=== PATIENT | male | born 1965 ===

== ENCOUNTER → 2016-08-15 | Outpatient (CLI) | payer OTHER ==
--- NOTE | 2016-08-15 17:39 | XR ---
EXAMINATION TYPE: XR lumbar spine 2 or 3V DATE OF EXAM: 08/15/2016 5:32 PM CLINICAL HISTORY: pain TECHNIQUE: Three views of the lumbar spine are submitted. COMPARISON: None. FINDINGS: There are 5 lumbar type vertebral bodies identified. Grade 1 anterolisthesis L4 and L5 measuring 8.8 mm. Severe space narrowing L5-S1. Facet joint arthropathy. The lumbar spine shows satisfactory alignm ent without evidence of acute fracture or dislocation. Vertebral body heights are within normal limit s. The overlying soft tissue appears unremarkable. IMPRESSION: No acute fracture is seen in the lumbar spine. Charted changes as noted. ICD 10 NO FRACTURE, INITIAL EVALUATION
== END ==
LOC: RADXRMAIN 17:18
PROVIDERS: ATTEND Emergency Medicine
DX: S39.012A Strain of muscle, fascia and tendon of lower back, initial encounter (principal)
CPT/HCPCS: 72100

== ENCOUNTER → 2016-08-20 | Outpatient (CLI) | payer OTHER ==
--- NOTE | 2016-08-20 15:14 | XR ---
EXAMINATION TYPE: XR thoracic spine complete DATE OF EXAM: 08/20/2016 1:51 PM COMPARISON: NONE HISTORY: Strain of muscle TECHNIQUE: 2 views thoracic spine supplemented with a transthoracic swimmer's view FINDINGS: There are 12 thoracic type she will bodies. The pedicles are intact. Disc heights are prese rved. Vertebral body heights are preserved. Alignment is normal. IMPRESSION: 1. Normal thoracic spine
== END | disposition home or self-care (01) ==
LOC: RADXRMAIN 13:17
PROVIDERS: ATTEND Emergency Medicine
DX: S39.012A Strain of muscle, fascia and tendon of lower back, initial encounter (principal)
CPT/HCPCS: 72072

== ENCOUNTER 2018-10-08 05:06 | Emergency (ER) | payer OTHER ==
[2018-10-08] MEDS ORDERED: SODIUM CHLORIDE 0.9% 500 ML 500 ML IV ONE (05:32)
--- NOTE | 2018-10-08 05:34 | ED ---
General Adult HPI - General Source: patient, RN notes reviewed, old records reviewed Mode of arrival: wheelchair Limitations: no limitations <Romel Tidwell - Last Filed: 10/08/18 07:00> <Sung Collazo - Last Filed: 10/08/18 07:55> - General Chief complaint: Skin/Abscess/Foreign Body Stated complaint: Infection in leg Time Seen by Provider: 10/08/18 05:11 - History of Present Illness Initial comments: 53-year-old male with history of hypertension, diabetes presenting for evaluation of pain and swelling in the right medial thigh. Patient's symptoms have been present for approximately one week. He does report some subjective fever chills earlier in the week. He had some lightheadedness. Denies dyspnea, denies chest pain. No history of DVT or PE. He has previous history of cellulitis. Denies scrotal pain or swelling. Denies erythema to the scrotum. He hasn't, pain nausea vomiting. (Romel Tidwell) - Related Data Home Medications Medication Instructions Recorded Confirmed Furosemide [Lasix] 80 mg PO DAILY 02/26/15 10/08/18 Omeprazole [PriLOSEC] 20 mg PO AC-BRKFST 02/26/15 10/08/18 Potassium Chloride ER [K-Dur 10] 10 meq PO DAILY 02/26/15 10/08/18 Ramipril 10 mg PO BID 02/26/15 10/08/18 metFORMIN HCL [Glucophage] 500 mg PO BID 02/26/15 10/08/18 Dulaglutide [Trulicity] 1.5 mg SQ FR 10/08/18 10/08/18 Rosuvastatin Calcium 5 mg PO MOWEFR 10/08/18 10/08/18 Previous Rx's Medication Instructions Recorded Sulfamethox-Tmp 800-160Mg [Bactrim 2 each PO Q12HR #40 tab 10/08/18 DS 800-160 mg] Allergies Allergy/AdvReac Type Severity Reaction Status Date / Time ramipril [From Altace] Allergy Swelling Verified 10/08/18 07:49 amlodipine [From Norvasc] AdvReac Nausea Verified 10/08/18 07:49 Review of Systems ROS Other: All systems not noted in ROS Statement are negative. <Romel Tidwell - Last Filed: 10/08/18 07:00> ROS Other: All systems not noted in ROS Statement are negative. <Sung Collazo - Last Filed: 10/08/18 07:55> ROS Statement: Those systems with pertinent positive or pertinent negative responses have been documented in the HPI. Past Medical History Past Medical History: Diabetes Mellitus, Hyperlipidemia, Hypertension History of Any Multi-Drug Resistant Organisms: None Reported Past Surgical History: No Surgical Hx Reported Past Psychological History: No Psychological Hx Reported Smoking Status: Never smoker Past Alcohol Use History: None Reported Past Drug Use History: None Reported <Romel Tidwell - Last Filed: 10/08/18 07:00> General Exam Limitations: no limitations General appearance: alert, in no apparent distress Head exam: Present: atraumatic, normocephalic Eye exam: Present: normal appearance, PERRL ENT exam: Present: normal exam Neck exam: Present: normal inspection. Absent: tenderness, meningismus Respiratory exam: Present: normal lung sounds bilaterally. Absent: respiratory distress, wheezes Cardiovascular Exam: Present: regular rate, normal rhythm GI/Abdominal exam: Present: soft. Absent: distended, tenderness Extremities exam: Present: tenderness (Tenderness and swelling medial right thigh, there is some associated erythema. No fluctuance, no induration), other Neurological exam: Present: alert, oriented X3, CN II-XII intact. Absent: motor sensory deficit Psychiatric exam: Present: normal affect, normal mood Skin exam: Present: warm, dry, erythema (Right medial thigh) <Romel Tidwell - Last Filed: 10/08/18 07:00> Course <Romel Tidwell - Last Filed: 10/08/18 07:00> Vital Signs 10/08/18 05:12 Temperature 98.2 F Pulse Rate 78 Respiratory 20 Rate Blood Pressure 133/82 O2 Sat by Pulse 97 Oximetry - Reevaluation(s) Reevaluation #1: 10/08/18 07:00 Patient's care is signed out at shift change to Dr. Collazo awaiting ultrasound of the right lower extremity. (Romel Tidwell) Medical Decision Making - Lab Data Result diagrams: 10/08/18 05:30 10/08/18 05:30 <Romel Tidwell - Last Filed: 10/08/18 07:00> - Lab Data Result diagrams: 10/08/18 05:30 10/08/18 05:30 - Radiology Data Radiology results: report reviewed (Ultrasound negative for DVT) <Sung Collazo - Last Filed: 10/08/18 07:55> - Medical Decision Making Case endorsed to me with probable cellulitis and discharge of ultrasound negative. Patient reevaluated. Patient and family updated. Patient does have area of erythema right medial thigh just above the knee to the mid thigh. This is warm and mildly tender. Consistent with diagnosis of cellulitis. (Sung Collazo) - Lab Data Lab Results 10/08/18 10/08/18 Range/Units 05:30 05:30 WBC 11.3 H (3.8-10.6) k/uL RBC 5.56 (4.30-5.90) m/uL Hgb 12.3 L (13.0-17.5) gm/dL Hct 38.8 L (39.0-53.0) % MCV 69.9 L (80.0-100.0) fL MCH 22.2 L (25.0-35.0) pg MCHC 31.7 (31.0-37.0) g/dL RDW 14.6 (11.5-15.5) % Plt Count 175 (150-450) k/uL Neutrophils % 63 % Lymphocytes % 26 % Monocytes % 6 % Eosinophils % 3 % Basophils % 0 % Neutrophils # 7.1 (1.3-7.7) k/uL Lymphocytes # 2.9 (1.0-4.8) k/uL Monocytes # 0.6 (0-1.0) k/uL Eosinophils # 0.4 (0-0.7) k/uL Basophils # 0.1 (0-0.2) k/uL Hypochromasia Slight Microcytosis Moderate Sodium 138 (137-145) mmol/L Potassium 4.1 (3.5-5.1) mmol/L Chloride 102 (98-107) mmol/L Carbon Dioxide 22 (22-30) mmol/L Anion Gap 14 mmol/L BUN 14 (9-20) mg/dL Creatinine 0.72 (0.66-1.25) mg/dL Est GFR (CKD-EPI)AfAm >90 (>60 ml/min/1.73 sqM) Est GFR (CKD-EPI)NonAf >90 (>60 ml/min/1.73 sqM) Glucose 197 H (74-99) mg/dL Calcium 9.5 (8.4-10.2) mg/dL Total Bilirubin 1.1 (0.2-1.3) mg/dL AST 26 (17-59) U/L ALT 29 (21-72) U/L Alkaline Phosphatase 61 (38-126) U/L Total Protein 7.2 (6.3-8.2) g/dL Albumin 4.2 (3.5-5.0) g/dL Disposition <Romel Tidwell - Last Filed: 10/08/18 07:00> Is patient prescribed a controlled substance at d/c from ED?: No Time of Disposition: 07:55 <Sung Collazo - Last Filed: 10/08/18 07:55> Clinical Impression: Cellulitis of right thigh Disposition: HOME SELF-CARE Condition: Stable Instructions (If sedation given, give patient instructions): Cellulitis (ED) Additional Instructions: Please follow-up with primary care physician in the next couple days for recheck. Return for fevers, increased redness, pain, worsening symptoms or any other concerns. Prescriptions: Sulfamethox-Tmp 800-160Mg [Bactrim DS 800-160 mg] 2 each PO Q12HR #40 tab Referrals: Reuben Garvey DO [Primary Care Provider] - 1-2 days
[2018-10-08 06:01] LABS: Basophils # (A) 0.1 k/uL (0-0.2); Basophils % (A) 0 %; Eosinophils # (A) 0.4 k/uL (0-0.7); Eosinophils % (A) 3 %; HCT 38.8 % (39.0-53.0); HGB 12.3 gm/dL (13.0-17.5); Hypochromasia Slight; Lymphocytes # (A) 2.9 k/uL (1.0-4.8); Lymphocytes % (A) 26 %; MCH 22.2 pg (25.0-35.0); MCHC 31.7 g/dL (31.0-37.0); MCV 69.9 fL (80.0-100.0); Mean Platelet Volume 9.3; Microcytosis Moderate; Monocytes # (A) 0.6 k/uL (0-1.0); Monocytes % (A) 6 %; Neutrophils # (A) 7.1 k/uL (1.3-7.7); Neutrophils % (A) 63 %; Platelet Count 175 k/uL (150-450); RBC 5.56 m/uL (4.30-5.90); RDW 14.6 % (11.5-15.5); WBC 11.3 k/uL (3.8-10.6)
[2018-10-08 06:08] LABS: ALT 29 U/L (21-72); AST 26 U/L (17-59); Albumin 4.2 g/dL (3.5-5.0); Alkaline Phosphatase 61 U/L (38-126); Anion Gap 14 mmol/L; Blood Urea Nitrogen 14 mg/dL (9-20); Calcium 9.5 mg/dL (8.4-10.2); Carbon Dioxide 22 mmol/L (22-30); Chloride 102 mmol/L (98-107); Glucose 197 mg/dL (74-99); Potassium 4.1 mmol/L (3.5-5.1); Sodium 138 mmol/L (137-145); Total Bilirubin 1.1 mg/dL (0.2-1.3); Total Protein 7.2 g/dL (6.3-8.2)
--- NOTE | 2018-10-08 07:43 | US ---
EXAMINATION TYPE: US venous doppler duplex LE RT DATE OF EXAM: 10/08/2018 7:24 AM COMPARISON: None CLINICAL HISTORY: 53-year-old male Pain. Upper leg redness. SIDE PERFORMED: Right TECHNIQUE: The lower extremity deep venous system is examined utilizing real time linear array sonog tran with graded compression, doppler sonography and color-flow sonography. FINDINGS: VESSELS IMAGED: External Iliac Vein (EIV) Common Femoral Vein Deep Femoral Vein Greater Saphenous Vein * Femoral Vein Popliteal Vein Small Saphenous Vein * Proximal Calf Veins (* superficial vessels) Gasket Inspector notes: Technically difficult study due to patient body habitus. Patient unable to tolerat e compression imaging mid and distal femoral vein. Therefore, additional color imaging was performed. Right Leg: Negative for DVT IMPRESSION: Some technical limitations of this study. No evidence for DVT within the right lower extremity imaged from the groin to the upper calf.
[2018-10-08] MEDS ORDERED: SULFAMETHOX-TMP 800-160MG 1 EACH TAB PO STA (07:52)
[2018-10-08 08:21] VITALS: BP 144/88; PULSE 70; RESP 16; TEMP 98.6
== END 2018-10-08 08:21 | disposition home or self-care (01) ==
LOC: EC 05:06
DX: L03.115 Cellulitis of right lower limb (principal); E11.9 Type 2 diabetes mellitus without complications; E78.5 Hyperlipidemia, unspecified; I10 Essential (primary) hypertension; Z79.84 Long term (current) use of oral hypoglycemic drugs; Z79.899 Other long term (current) drug therapy; Z88.8 Allergy status to other drugs, medicaments and biological substances
CPT/HCPCS: 36415; 80053; 85025; 99284

== ENCOUNTER 2023-07-04 16:11 | Inpatient (IN) | payer BC ==
[2023-07-04 17:07] LABS: Basophils # (A) 0.1 k/uL (0-0.2); Basophils % (A) 1 %; Eosinophils # (A) 0.4 k/uL (0-0.7); Eosinophils % (A) 4 %; HCT 43.1 % (39.0-53.0); HGB 13.5 gm/dL (13.0-17.5); Hypochromasia Slight; Lymphocytes # (A) 2.9 k/uL (1.0-4.8); Lymphocytes % (A) 30 %; MCH 22.1 pg (25.0-35.0); MCHC 31.3 g/dL (31.0-37.0); MCV 70.7 fL (80.0-100.0); Mean Platelet Volume 9.4; Microcytosis Moderate; Monocytes # (A) 0.5 k/uL (0-1.0); Monocytes % (A) 5 %; Neutrophils # (A) 5.5 k/uL (1.3-7.7); Neutrophils % (A) 57 %; Platelet Count 137 k/uL (150-450); RDW 15.8 % (11.5-15.5); WBC 9.6 k/uL (3.8-10.6)
[2023-07-04] MEDS ORDERED: DILTIAZEM DRIP BOLUS FROM BAG 1 MG SOLN IV ONE (17:07)
[2023-07-04 17:23] LABS: Partial Thromboplastin Time 23.6 sec (22.0-30.0); Prothrombin Time 11.3 sec (10.0-12.5)
[2023-07-04 17:24] LABS: ALT 33 U/L (4-49); AST 35 U/L (17-59); African American GFR (CKD) >90 (>60 ml/min/1.73 sqM); Albumin 4.7 g/dL (3.5-5.0); Alkaline Phosphatase 84 U/L (38-126); Anion Gap 9 mmol/L; Blood Urea Nitrogen 15 mg/dL (9-20); Calcium 9.7 mg/dL (8.4-10.2); Carbon Dioxide 23 mmol/L (22-30); Chloride 105 mmol/L (98-107); Glucose 196 mg/dL (74-99); Magnesium 1.5 mg/dL (1.6-2.3); Non-African American GFR(CKD) >90 (>60 ml/min/1.73 sqM); Potassium 4.1 mmol/L (3.5-5.1); Sodium 137 mmol/L (137-145); Total Bilirubin 1.3 mg/dL (0.2-1.3); Total Protein 7.8 g/dL (6.3-8.2)
--- NOTE | 2023-07-04 17:29 | XR ---
EXAMINATION TYPE: XR chest 2V DATE OF EXAM: 07/04/2023 COMPARISON: NONE HISTORY: Shortness of breath TECHNIQUE: Frontal and lateral views of the chest are obtained. FINDINGS: Scattered senescent parenchymal changes noted. Hyperinflation compatible with COPD. No evidence for infiltrate. No evidence for atelectasis. Heart size is stable. Mediastinal structures are stable and grossly unremarkable. No evidence for hilar prominence. Degenerative changes dorsal spine. IMPRESSION: 1. No evidence for acute pulmonary disease.
[2023-07-04 17:32] LABS: NT-Pro-B-Type Natriuretic Pept 527 pg/mL
[2023-07-04] MEDS ORDERED: DILTIAZEM 125 MG in SODIUM CHLORIDE 0.9% 100 ML IV SCH (18:00)
--- NOTE | 2023-07-04 18:19 | ED ---
Chest Pain HPI - General Chief Complaint: Chest Pain Stated Complaint: Chest pain Time Seen by Provider: 07/04/23 16:20 Source: patient Mode of arrival: ambulatory Limitations: no limitations - History of Present Illness Initial Comments: 58-year-old male presents emergency room reporting chest pain. States the pain came on suddenly approximately 2 hours ago. He can feel his heart racing. He feels short of breath. He has no previous cardiac history. Patient arrives and is in A. fib. No history of similar. He denies any recent illnesses. No c ontraindications to anticoagulation. No other alleviating, precipitating or modifying factors - Related Data Home Medications Medication Instructions Recorded Confirmed Omeprazole [PriLOSEC] 20 mg PO AC-BRKFST 02/26/15 07/04/23 Potassium Chloride ER [K-Dur 10] 10 meq PO DAILY 02/26/15 07/04/23 metFORMIN HCL [Glucophage] 1,000 mg PO BID 02/26/15 07/04/23 Rosuvastatin Calcium 5 mg PO HS 10/08/18 07/04/23 Cholecalciferol [Vitamin D3 (25 50 mcg PO DAILY 07/04/23 07/04/23 Mcg = 1000 Iu)] Insulin Aspart [NovoLOG Flexpen] See Protocol SQ ACHS 07/04/23 07/04/23 Insulin Glargine,Hum.rec.anlog 30 units SQ HS 07/04/23 07/04/23 [Lantus Solostar Pen] Losartan [Cozaar] 50 mg PO DAILY 07/04/23 07/04/23 Multivitamins, Thera [Multivitamin 1 tab PO DAILY 07/04/23 07/04/23 (formulary)] Tirzepatide [Mounjaro] 10 mg SQ FR 07/04/23 07/04/23 Previous Rx's Medication Instructions Recorded Apixaban [Eliquis] 5 mg PO BID #60 tab 07/06/23 Chlorthalidone [Hygroton] 25 mg PO DAILY #30 tablet 07/06/23 Metoprolol Succinate (ER) [Toprol 50 mg PO DAILY #30 tab 07/06/23 XL] Allergies Allergy/AdvReac Type Severity Reaction Status Date / Time ramipril [From Altace] Allergy Swelling Verified 07/04/23 16:15 amlodipine [From Norvasc] AdvReac Nausea Verified 07/04/23 16:15 Review of Systems ROS Statement: Those systems with pertinent positive or pertinent negative responses have been documented in the HPI. ROS Other: All systems not noted in ROS Statement are negative. Past Medical History Past Medical History: Diabetes Mellitus, Hyperlipidemia, Hypertension History of Any Multi-Drug Resistant Organisms: None Reported Past Surgical History: No Surgical Hx Reported Past Psychological History: No Psychological Hx Reported Smoking Status: Never smoker Past Alcohol Use History: None Reported Past Drug Use History: None Reported General Exam Limitations: no limitations General appearance: alert, in no apparent distress Head exam: Present: atraumatic, normocephalic, normal inspection Eye exam: Present: normal appearance, PERRL, EOMI. Absent: scleral icterus, conjunctival injection, periorbital swelling ENT exam: Present: normal exam, mucous membranes moist Neck exam: Present: normal inspection. Absent: tenderness, meningismus, lymp hadenopathy Respiratory exam: Present: normal lung sounds bilaterally. Absent: respiratory distress, wheezes, rales, rhonchi, stridor Cardiovascular Exam: Present: tachycardia, irregular rhythm, normal heart sounds. Absent: systolic murmur, diastolic murmur, rubs, gallop, clicks GI/Abdominal exam: Present: soft, normal bowel sounds. Absent: distended, tenderness, guarding, rebound, rigid Extremities exam: Present: normal inspection, full ROM, normal capillary refill. Absent: tenderness, pedal edema, joint swelling, calf tenderness Back exam: Present: normal inspection Neurological exam: Present: alert, oriented X3, CN II-XII intact Psychiatric exam: Present: normal affect, normal mood Skin exam: Present: warm, dry, intact, normal color. Absent: rash Course Vital Signs 07/04/23 07/04/23 07/04/23 16:13 18:37 20:00 Temperature 98.4 F Pulse Rate 50 L 160 H 90 Pulse Rate [ 86 Pulse Oximetery ] Respiratory 22 18 18 Rate Blood Pressure 151/103 104/84 145/86 O2 Sat by Pulse 100 99 95 Oximetry Chest Pain MDM - MDM Was pt. sent in by a medical professional or institution (, PA, MUCK OPERATOR, urgent care, hospital, or half-way...) When possible be specific @ -No Did you speak to anyone other than the patient for history (EMS, parent, family, police, friend...)? What history was obtained from this source @ -No Did you review nursing and triage notes (agree or disagree)? Why? @ -I reviewed and agree with nursing and triage notes Were old charts reviewed (outside hosp., previous admission, EMS record, old EKG, old radiological studies, urgent care reports/EKG's, half-way records)? Report findings @ -No old charts were reviewed Differential Diagnosis (chest pain, altered mental status, abdominal pain women, abdominal pain men, vaginal bleeding, weakness, fever, dyspnea, syncope, headache, dizziness, GI bleed, back pain, seizure, CVA, palpatations, mental health, musculoskeletal)? @ -Differential Chest Pain: Stable Angina, Unstable Angina, STEMI, NSTEMI Aortic Dissection, Pneumothorax, Musculoskeletal, Esophageal Spasm GERD, Cholecystitis, Pancreatitis, Zoster, this is not meant to be an all-inclusive list. EKG interpreted by me (3pts min.). @ -Yes and demonstrates A. fib with a rate of 155. QRS 87. QTC of 427. ST depression 2, 3, aVF. No acute ST segment elevation -yes and demonstrates sinus rhythm with a rate of 87. MO 166. QRS 226. QTC of 393 X-rays interpreted by me (1pt min.). @ -Yes and demonstrates no acute process CT interpreted by me (1pt min.). @ -None done U/S interpreted by me (1pt. min.). @ -None done What testing was considered but not performed or refused? (CT, X-rays, U/S, labs)? Why? @ -None What meds were considered but not given or refused? Why? @ -None Did you discuss the management of the patient with other professionals (professionals i.e. , PA, MUCK OPERATOR, lab, RT, psych nurse, psychosocial rehabilitation counselor, jewel flat surfacer, teacher, space operations officer, field nurse case manager)? Give summary @ -Spoke with Kenneth from [facility] Was smoking cessation discussed for >3mins.? @ -No Was critical care preformed (if so, how long)? @ -Yes, 40 minutes for management of Cardizem drip Were there social determinants of health that impacted care today? How? (Homelessness, low income, unemployed, alcoholism, drug addiction, transportation, low edu. Level, literacy, decrease access to med. care, [facility], rehab)? @ -No Was there de-escalation of care discussed even if they declined (Discuss DNR or withdrawal of care, Hospice)? DNR status @ -No What co-morbidities impacted this encounter? (DM, HTN, Smoking, COPD, CAD, Cancer, CVA, ARF, Chemo, Hep., AIDS, mental health diagnosis, sleep apnea, morbid obesity)? @ -None Was patient admitted / discharged? Hospital course, mention meds given and route, prescriptions, significant lab abnormalities, going to OR and other pertinent info. @ -Upon arrival the patient was placed into room 3. Thorough history and physical exam was performed. IV is established. Laboratory studies were conducted. Patient is initiated on Cardizem and heparin. He is given magnesium. Patient does convert here in the emergency department. He will be admitted overnight for cardiology consultation. Patient agreeable to the plan. Spoke with Kenneth from [facility] who agreed to admission. Undiagnosed new problem with uncertain prognosis? @ -No Drug Therapy requiring intensive monitoring for toxicity (Heparin, Nitro, Insulin, Cardizem)? @ -Cardizem Were any procedures done? @ -No Diagnosis/symptom? @ -Acute chest pain, new onset A-fib with RVR Acute, or Chronic, or Acute on Chronic? @ -Acute Uncomplicated (without systemic symptoms) or Complicated (systemic symptoms)? @ -Complicated Side effects of treatment? @ -No Exacerbation, Progression, or Severe Exacerbation? @ -No Poses a threat to life or bodily function? How? (Chest pain, [place], [place], pneumonia, PE, COPD, DKA, ARF, appy, cholecystitis, CVA, Diverticulitis, Homicidal, Suicidal, threat to staff... and all critical care pts) @ -Yes patient presents with rapid heart rate Disposition Clinical Impression: Chest pain, Atrial fibrillation with RVR Disposition: ADMITTED IP TO THIS HOSP Is patient prescribed a controlled substance at d/c from ED?: No Time of Disposition: 18:23 Decision to Admit Reason: Admit from EC Decision Date: 07/04/23 Decision Time: 18:24
[2023-07-04] MEDS ORDERED: HEPARIN SODIUM 1,000 UN/ML (10ML VL) IV ONE (18:25)
[2023-07-04] MEDS ORDERED: HEPARIN SODIUM 1,000 UN/ML (10ML VL) IV PRN (18:25)
[2023-07-04] MEDS ORDERED: NALOXONE 0.4 MG/ML 1 ML VIAL IV PRN (18:26)
[2023-07-04] MEDS ORDERED: HEPARIN SOD,PORK IN 0.45% NACL 25,000 UNIT in 0.45% NACL 1 250ML.BAG IV SCH (18:30)
[2023-07-04] MEDS: MAGNESIUM SULFATE-D5W PMX 1 GM in DEXTROSE/WATER 1 100ML.BAG IVPB SCH ×2 (20:18→21:55)
[2023-07-04] MEDS ORDERED: DEXTROSE 50% SYRINGE 50 ML IVP PRN ×2 (20:39)
[2023-07-04] MEDS ORDERED: ATORVASTATIN 10 MG TAB PO SCH (21:00)
[2023-07-04 21:09] LABS: Glucose,Whole Blood 234 mg/dL (70-110)
[2023-07-04 21:15] VITALS: RESP 16
[2023-07-04] MEDS: metFORMIN 500 MG TAB PO SCH (21:56)
[2023-07-04] MEDS: INSULIN DETEMIR (LEVEMIR) 100 UNIT/ML SYR SQ SCH (21:56)
[2023-07-04] MEDS: INSULIN ASPART (NovoLOG) 100 UNIT/ML VIAL SQ SCH (21:56)
[2023-07-05 06:17] LABS: Glucose,Whole Blood 188 mg/dL (70-110)
[2023-07-05] MEDS: PANTOPRAZOLE 40 MG TABLET PO SCH (06:39)
[2023-07-05] MEDS: INSULIN ASPART (NovoLOG) 100 UNIT/ML VIAL SQ SCH ×4 (06:39→20:45)
[2023-07-05 07:56] LABS: Basophils # (A) 0.1 k/uL (0-0.2); Basophils % (A) 1 %; Eosinophils # (A) 0.4 k/uL (0-0.7); Eosinophils % (A) 4 %; HCT 37.9 % (39.0-53.0); HGB 12.2 gm/dL (13.0-17.5); Hypochromasia Slight; Lymphocytes # (A) 3.3 k/uL (1.0-4.8); Lymphocytes % (A) 34 %; MCH 22.5 pg (25.0-35.0); MCHC 32.1 g/dL (31.0-37.0); MCV 70.2 fL (80.0-100.0); Mean Platelet Volume 10.2; Microcytosis Moderate; Monocytes # (A) 0.6 k/uL (0-1.0); Monocytes % (A) 6 %; Neutrophils # (A) 5.3 k/uL (1.3-7.7); Neutrophils % (A) 54 %; Platelet Count 162 k/uL (150-450); RDW 15.5 % (11.5-15.5); WBC 9.8 k/uL (3.8-10.6)
[2023-07-05 08:18] LABS: African American GFR (CKD) >90 (>60 ml/min/1.73 sqM); Anion Gap 7 mmol/L; Blood Urea Nitrogen 13 mg/dL (9-20); Calcium 9.1 mg/dL (8.4-10.2); Carbon Dioxide 25 mmol/L (22-30); Chloride 106 mmol/L (98-107); Glucose 181 mg/dL (74-99); Non-African American GFR(CKD) >90 (>60 ml/min/1.73 sqM); Potassium 3.8 mmol/L (3.5-5.1); Sodium 138 mmol/L (137-145)
[2023-07-05 08:21] LABS: INR 1.1 (<1.2); Partial Thromboplastin Time 43.9 sec (22.0-30.0); Prothrombin Time 11.4 sec (10.0-12.5)
[2023-07-05] MEDS: metFORMIN 500 MG TAB PO SCH ×2 (08:39→20:44)
[2023-07-05] MEDS: CHOLECALCIFEROL 25 MCG (1000 IU) TABLET PO SCH (08:39)
[2023-07-05] MEDS: MULTIVITAMINS, THERA 1 EACH TAB PO SCH (08:39)
[2023-07-05] MEDS: LOSARTAN 50 MG TAB PO SCH (08:39)
[2023-07-05] MEDS: POTASSIUM CHLORIDE ER 10 MEQ TAB.ER.PRT PO SCH (08:39)
[2023-07-05] MEDS ORDERED: DEXTROSE 50% SYRINGE 50 ML IVP PRN ×2 (10:51)
[2023-07-05 11:23] LABS: Glucose,Whole Blood 199 mg/dL (70-110)
--- NOTE | 2023-07-05 13:12 | P.GSCN ---
History of Present Illness Consult date: 07/05/23 Reason for Consult: Hematuria Requesting physician: Balaji Brown History of present illness: The patient is a 58-year-old white male who presented to the ER yesterday with chest pain. He was found to be in atrial fibrillation with RVR. He is being treated with a heparin drip. When evaluated in the ER, he noted significant urinary frequency. When heparin was started, he developed gross hematuria. This was associated with suprapubic discomfort. He states that the heparin dosage has been decreased, and that both the hematuria and superpubic discomfort have improved. He states that the hematuria has involved only the terminal portion of his urinary stream. His urologic history is significant for a prior kidney stone, which he passed. He also states that he has been treated for a UTI in the remote past. Review of Systems - Cardiovascular Reports chest pain, Reports high blood pressure - Genitourinary Reports hematuria, Denies flank pain Past Medical History Past Medical History: Diabetes Mellitus, Hyperlipidemia, Hypertension History of Any Multi-Drug Resistant Organisms: None Reported Past Surgical History: No Surgical Hx Reported Past Anesthesia/Blood Transfusion Reactions: No Reported Reaction Past Psychological History: No Psychological Hx Reported Smoking Status: Never smoker Past Alcohol Use History: None Reported Past Drug Use History: None Reported Medications and Allergies Home Medications Medication Instructions Recorded Confirmed Type Omeprazole [PriLOSEC] 20 mg PO AC-BRKFST 02/26/15 07/04/23 History Potassium Chloride ER [K-Dur 10] 10 meq PO DAILY 02/26/15 07/04/23 History metFORMIN HCL [Glucophage] 1,000 mg PO BID 02/26/15 07/04/23 History Rosuvastatin Calcium 5 mg PO HS 10/08/18 07/04/23 History Cholecalciferol [Vitamin D3 (25 50 mcg PO DAILY 07/04/23 07/04/23 History Mcg = 1000 Iu)] Insulin Aspart [NovoLOG Flexpen] See Protocol SQ ACHS 07/04/23 07/04/23 History Insulin Glargine,Hum.rec.anlog 30 units SQ HS 07/04/23 07/04/23 History [Lantus Solostar Pen] Losartan [Cozaar] 50 mg PO DAILY 07/04/23 07/04/23 History Multivitamins, Thera [Multivitamin 1 tab PO DAILY 07/04/23 07/04/23 History (formulary)] Tirzepatide [Mounjaro] 10 mg SQ FR 07/04/23 07/04/23 History Allergies Allergy/AdvReac Type Severity Reaction Status Date / Time ramipril [From Altace] Allergy Swelling Verified 07/04/23 16:15 amlodipine [From Norvasc] AdvReac Nausea Verified 07/04/23 16:15 Surgical - Exam Vital Signs Temp Pulse Resp BP Pulse Ox 98.4 F 50 L 22 151/103 100 07/04/23 16:13 07/04/23 16:13 07/04/23 16:13 07/04/23 16:13 07/04/23 16:13 - General well developed, well nourished, no distress - Respiratory normal respiratory effort - Abdomen Abdomen: soft, non tender, no guarding, no rigid, no rebound - Genitourinary normal penis with no external lesions, testicles non-tender - Rectum Rectum: normal sphincter tone, no masses, other (Prostate is small and smooth) - Psychiatric oriented to time, oriented to person, oriented to place, speech is normal, memory intact Results - Labs 07/05/23 07:35 07/05/23 07:35 Abnormal Lab Results - Last 24 Hours (Table) 07/04/23 07/04/23 07/04/23 Range/Units 16:47 16:47 21:08 RBC 6.10 H (4.30-5.90) m/uL Hgb (13.0-17.5) gm/dL Hct (39.0-53.0) % MCV 70.7 L (80.0-100.0) fL MCH 22.1 L (25.0-35.0) pg RDW 15.8 H (11.5-15.5) % Plt Count 137 L (150-450) k/uL APTT (22.0-30.0) sec Glucose 196 H (74-99) mg/dL POC Glucose (mg/dL) 234 H (70-110) mg/dL Magnesium 1.5 L (1.6-2.3) mg/dL 07/05/23 07/05/23 07/05/23 Range/Units 00:18 06:15 07:30 RBC (4.30-5.90) m/uL Hgb (13.0-17.5) gm/dL Hct (39.0-53.0) % MCV (80.0-100.0) fL MCH (25.0-35.0) pg RDW (11.5-15.5) % Plt Count (150-450) k/uL APTT 32.1 H 43.9 H (22.0-30.0) sec Glucose (74-99) mg/dL POC Glucose (mg/dL) 188 H (70-110) mg/dL Magnesium (1.6-2.3) mg/dL 07/05/23 07/05/23 Range/Units 07:35 07:35 RBC (4.30-5.90) m/uL Hgb 12.2 L (13.0-17.5) gm/dL Hct 37.9 L (39.0-53.0) % MCV 70.2 L (80.0-100.0) fL MCH 22.5 L (25.0-35.0) pg RDW (11.5-15.5) % Plt Count (150-450) k/uL APTT (22.0-30.0) sec Glucose 181 H (74-99) mg/dL POC Glucose (mg/dL) (70-110) mg/dL Magnesium (1.6-2.3) mg/dL Diabetes panel 07/04/23 07/05/23 Range/Units 16:47 07:35 Sodium 137 138 (137-145) mmol/L Potassium 4.1 3.8 (3.5-5.1) mmol/L Chloride 105 106 (98-107) mmol/L Carbon Dioxide 23 25 (22-30) mmol/L BUN 15 13 (9-20) mg/dL Creatinine 0.81 0.78 (0.66-1.25) mg/dL Glucose 196 H 181 H (74-99) mg/dL Calcium 9.7 9.1 (8.4-10.2) mg/dL AST 35 (17-59) U/L ALT 33 (4-49) U/L Alkaline Phosphatase 84 (38-126) U/L Total Protein 7.8 (6.3-8.2) g/dL Albumin 4.7 (3.5-5.0) g/dL Thyroid panel 07/04/23 Range/Units 16:47 TSH 3.040 (0.465-4.680) mIU/L Calcium panel 07/04/23 07/05/23 Range/Units 16:47 07:35 Calcium 9.7 9.1 (8.4-10.2) mg/dL Albumin 4.7 (3.5-5.0) g/dL Pituitary panel 07/04/23 07/05/23 Range/Units 16:47 07:35 Sodium 137 138 (137-145) mmol/L Potassium 4.1 3.8 (3.5-5.1) mmol/L Chloride 105 106 (98-107) mmol/L Carbon Dioxide 23 25 (22-30) mmol/L BUN 15 13 (9-20) mg/dL Creatinine 0.81 0.78 (0.66-1.25) mg/dL Glucose 196 H 181 H (74-99) mg/dL Calcium 9.7 9.1 (8.4-10.2) mg/dL TSH 3.040 (0.465-4.680) mIU/L Adrenal panel 07/04/23 07/05/23 Range/Units 16:47 07:35 Sodium 137 138 (137-145) mmol/L Potassium 4.1 3.8 (3.5-5.1) mmol/L Chloride 105 106 (98-107) mmol/L Carbon Dioxide 23 25 (22-30) mmol/L BUN 15 13 (9-20) mg/dL Creatinine 0.81 0.78 (0.66-1.25) mg/dL Glucose 196 H 181 H (74-99) mg/dL Calcium 9.7 9.1 (8.4-10.2) mg/dL Total Bilirubin 1.3 (0.2-1.3) mg/dL AST 35 (17-59) U/L ALT 33 (4-49) U/L Alkaline Phosphatase 84 (38-126) U/L Total Protein 7.8 (6.3-8.2) g/dL Albumin 4.7 (3.5-5.0) g/dL Assessment and Plan (1) Gross hematuria Current Visit: Yes Status: Acute Code(s): R31.0 - GROSS HEMATURIA SNOMED Code(s): 721321041 Plan: I had a lengthy discussion with the patient and his regarding his gross hematuria. The fact that it involves the terminal portion of his urinary stream suggest that it is likely a prostatic origin. Nonetheless, a formal hematuria evaluation is warranted. I have ordered urinalysis and a CT scan for further evaluation. Depending on the results of these studies, he will likely be advised to undergo office cystoscopy as an outpatient to complete his hematuria evaluation. Time with Patient: Greater than 30
--- NOTE | 2023-07-05 14:39 | CT ---
EXAMINATION TYPE: CT abdomen pelvis wo/w con DATE OF EXAM: 07/05/2023 COMPARISON: None HISTORY: Hematuria, pt states he started urinating blood after receiving blood thinners CT DLP: 4895.4 mGycm CONTRAST: CT scan of the abdomen and pelvis is performed without Oral Contrast and without and with IV Contrast , patient injected with 100 mL of Isovue 300. FINDINGS: LUNG BASES-: No visible nodule. No infiltrate. LIVER/GB: No calcified gallstones. No space occupying hepatic lesion. Biliary tree is of normal ca liber. PANCREAS: No inflammation. No distinct mass. SPLEEN: No splenic enlargement. No lesion seen. ADRENALS: No nodule. No thickening. KIDNEYS/BLADDER: No hydronephrosis. No nephrolithiasis. No distinct renal mass. Urinary bladder g rossly unremarkable. Less than ideal opacification of the urinary bladder with contrast limits evalua tion. BOWEL: Normal appendix. Normal bowel caliber. No inflammation. GENITAL ORGANS: No gross abnormality. LYMPH NODES: No greater than 1cm abdominal or pelvic lymph nodes are appreciated. AORTA: No significant abnormality. OSSEOUS STRUCTURES: Severe degenerative change L5-S1 with vacuum disc as well as at L4-5. OTHER: No significant additional abnormality is seen. IMPRESSION: 1. No discrete abnormality to account for the patient's symptoms of hematuria.
[2023-07-05 17:02] LABS: Glucose,Whole Blood 194 mg/dL (70-110)
--- NOTE | 2023-07-05 17:39 | P.CRDCN ---
History of Present Illness Consult date: 07/05/23 History of present illness: HISTORY OF PRESENTING ILLNESS Patient is a 58-year-old -Luxembourger male with morbid obesity, essential hypertension, type 2 diabetes presented to the hospital because of worsening chest heaviness and shortness of breath that started somewhat suddenly yesterday. On admission he was noticed to be in atrial fibrillation with rapid ventricular response. This is a new diagnosis for him. Patient has never been on it for ablation previously. Admission ECG showed atrial fibrillation with rapid ventricular response, heart rate 155 beats a minute. There were nonspecific ST changes in inferior leads with mild ST depressions at fast heartbeat Patient converted spontaneously to sinus rhythm at 8 PM yesterday. Repeat ECG shows sinus rhythm no significant ST-T wave changes at resting. Hemoglobin 12.2, platelets 162, sodium 138, percussion 3.8, creatinine 0.7, his UNC 9.5, troponin was negative at 0.02. Patient was started on IV heparin drip yesterday. This morning he was noticed to have hematuria. He was evaluated by urology service. They feel that his hematuria might be prostatic in origin. They performed a CT pelvis with contrast which did not show any concerning findings that may explain hematuria BP 140/70, heart rate 70 beats a minute, currently in sinus rhythm Hemoglobin 12.2, platelets 162, creatinine 0.7, troponins negative, HbA1c 9.5 REVIEW OF SYSTEMS 14 point review of system is negative except what is mentioned above in HPI. PHYSICAL EXAMINATION Vital signs reviewed. Head: Normocephalic. Eyes: Sclerae nonicteric. Neck: Brisk carotid upstroke, no jugular venous distention. Lungs: Clear to auscultation. Heart: Regular rate and rhythm, S1-S2, no S3, no murmur or rub. Abdomen: Soft nontender, positive bowel sounds no organomegaly. Extremities: No edema, intact distal pulses. Neuro: Alert, oritented, no focal deficits ASSESSMENT New-onset atrial fibrillation. Currently in sinus rhythm. [id number] score 2 hypertension and diabetes Type II Diabetes, a1c 9.5 Essential hypertension Morbid obesity Gross hematuria, currently stable. PLAN Obtain echocardiogram, obtain TSH levels Discontinue IV heparin drip, start Eliquis 5 mg twice a day Start metoprolol succinate 50 mg daily Continue losartan 50 mg daily Case discussed with neurology service. They agree with resuming anticoagulation and see how patient responds to it. If patient is stable, discharged tomorrow Outpatient follow-up with Dr. Brown in next 1-2 weeks. He will need an outpatient ischemic evaluation. If no ischemia he will be a candidate for pill in the pocket strategy. Past Medical History Past Medical History: Diabetes Mellitus, Hyperlipidemia, Hypertension History of Any Multi-Drug Resistant Organisms: None Reported Past Surgical History: No Surgical Hx Reported Past Anesthesia/Blood Transfusion Reactions: No Reported Reaction Past Psychological History: No Psychological Hx Reported Smoking Status: Never smoker Past Alcohol Use History: None Reported Past Drug Use History: None Reported Medications and Allergies Home Medications Medication Instructions Recorded Confirmed Type Omeprazole [PriLOSEC] 20 mg PO AC-BRKFST 02/26/15 07/04/23 History Potassium Chloride ER [K-Dur 10] 10 meq PO DAILY 02/26/15 07/04/23 History metFORMIN HCL [Glucophage] 1,000 mg PO BID 02/26/15 07/04/23 History Rosuvastatin Calcium 5 mg PO HS 10/08/18 07/04/23 History Cholecalciferol [Vitamin D3 (25 50 mcg PO DAILY 07/04/23 07/04/23 History Mcg = 1000 Iu)] Insulin Aspart [NovoLOG Flexpen] See Protocol SQ ACHS 07/04/23 07/04/23 History Insulin Glargine,Hum.rec.anlog 30 units SQ HS 07/04/23 07/04/23 History [Lantus Solostar Pen] Losartan [Cozaar] 50 mg PO DAILY 07/04/23 07/04/23 History Multivitamins, Thera [Multivitamin 1 tab PO DAILY 07/04/23 07/04/23 History (formulary)] Tirzepatide [Mounjaro] 10 mg SQ FR 07/04/23 07/04/23 History Allergies Allergy/AdvReac Type Severity Reaction Status Date / Time ramipril [From Altace] Allergy Swelling Verified 07/04/23 16:15 amlodipine [From Norvasc] AdvReac Nausea Verified 07/04/23 16:15 Physical Exam Vitals: Vital Signs Temp Pulse Pulse Resp BP BP Pulse Ox 07/05/23 14:00 74 16 07/05/23 12:00 98.3 F 74 16 148/80 98 07/05/23 08:41 98.3 F 76 16 141/90 98 07/05/23 06:09 78 16 130/79 95 07/05/23 02:00 85 07/05/23 00:05 85 16 135/81 94 L 07/04/23 21:05 97.8 F 86 16 147/87 97 07/04/23 20:00 90 86 18 145/86 95 07/04/23 18:37 160 H 18 104/84 99 Intake and Output 07/05/23 07/05/23 07/05/23 06:59 14:59 22:59 Intake Total 140.834 600 Output Total 300 Balance -159.166 600 Intake: Intake, IV Titration 140.834 Amount Heparin Sod,Pork in 0.45% 140.834 NaCl 25,000 unit In 0.45 % NaCl 1 250ml.bag @ 6.3 UNITS/KG/HR 10.002 mls/hr IV .Q24H [facility] Rx#: [id number] Oral 600 Output: Urine 300 Other: Voiding Method Toilet Toilet Urinal Urinal Results 07/05/23 07:35 07/05/23 07:35 Cardiac Enzymes 07/04/23 07/05/23 Range/Units 20:51 00:18 Troponin I 0.019 0.022 (0.000-0.034) ng/mL Coagulation 07/05/23 07/05/23 Range/Units 00:18 07:30 PT 11.4 (10.0-12.5) sec APTT 32.1 H 43.9 H (22.0-30.0) sec CBC 07/05/23 Range/Units 07:35 WBC 9.8 (3.8-10.6) k/uL RBC 5.40 (4.30-5.90) m/uL Hgb 12.2 L (13.0-17.5) gm/dL Hct 37.9 L (39.0-53.0) % Plt Count 162 (150-450) k/uL Comprehensive Metabolic Panel 07/05/23 Range/Units 07:35 Sodium 138 (137-145) mmol/L Potassium 3.8 (3.5-5.1) mmol/L Chloride 106 (98-107) mmol/L Carbon Dioxide 25 (22-30) mmol/L BUN 13 (9-20) mg/dL Creatinine 0.78 (0.66-1.25) mg/dL Glucose 181 H (74-99) mg/dL Calcium 9.1 (8.4-10.2) mg/dL Current Medications Generic Name Dose Route Start Last Admin Trade Name Freq PRN Reason Stop Dose Admin Apixaban 5 mg 07/05/23 21:00 Apixaban 5 Mg Tab PO BID [facility] Protocol Atorvastatin Calcium 40 mg 07/05/23 21:00 Atorvastatin 40 Mg Tab PO HS [facility] Cholecalciferol 50 mcg 07/05/23 09:00 07/05/23 08:39 Cholecalciferol 25 Mcg (1000 Iu) Tablet PO 50 mcg DAILY [facility] Administration Dextrose/Water 25 ml 07/04/23 20:39 Dextrose 50% Syringe 50 Ml IVP PER PROTOCOL PRN Hypoglycemia Protocol Dextrose/Water 50 ml 07/04/23 20:39 Dextrose 50% Syringe 50 Ml IVP PER PROTOCOL PRN Hypoglycemia Protocol Dextrose/Water 25 ml 07/05/23 10:51 Dextrose 50% Syringe 50 Ml IVP PER PROTOCOL PRN Hypoglycemia Protocol Dextrose/Water 50 ml 07/05/23 10:51 Dextrose 50% Syringe 50 Ml IVP PER PROTOCOL PRN Hypoglycemia Protocol Insulin Aspart 0 unit 07/04/23 21:00 07/05/23 12:08 Insulin Aspart (Novolog) 100 Unit/Ml Vial SQ 2 unit ACHS [facility] Administration Protocol Insulin Detemir 30 unit 07/04/23 21:00 07/04/23 21:56 Insulin Detemir (Levemir) 100 Unit/Ml Syr SQ 30 unit HS [facility] Administration Losartan Potassium 50 mg 07/05/23 09:00 07/05/23 08:39 Losartan 50 Mg Tab PO 50 mg DAILY [facility] Administration Metformin HCl 1,000 mg 07/04/23 21:00 07/05/23 08:39 Metformin 500 Mg Tab PO 1,000 mg BID [facility] Administration Metoprolol Succinate 50 mg 07/05/23 17:45 Metoprolol Succinate (Er) 50 Mg Tab.Er.24h PO DAILY [facility] Multivitamins 1 each 07/05/23 09:00 07/05/23 08:39 Multivitamins, Thera 1 Each Tab PO 1 each DAILY [facility] Administration Naloxone HCl 0.2 mg 07/04/23 18:26 Naloxone 0.4 Mg/Ml 1 Ml Vial IV Q2M PRN Opioid Reversal Tirzepatide [ 10 mg 07/11/23 09:00 Estelita] 10 Mg/0.5 SQ Ml Pen.Injctr FR [facility] Pantoprazole Sodium 40 mg 07/05/23 07:30 07/05/23 06:39 Pantoprazole 40 Mg Tablet PO 40 mg AC-BRKFST [facility] Administration Potassium Chloride 10 meq 07/05/23 09:00 07/05/23 08:39 Potassium Chloride Er 10 Meq Tab.Er.Prt PO 10 meq DAILY [facility] Administration Intake and Output 07/05/23 07/05/23 07/05/23 06:59 14:59 22:59 Intake Total 140.834 600 Output Total 300 Balance -159.166 600 Intake: Intake, IV Titration 140.834 Amount Heparin Sod,Pork in 0.45% 140.834 NaCl 25,000 unit In 0.45 % NaCl 1 250ml.bag @ 6.3 UNITS/KG/HR 10.002 mls/hr IV .Q24H [facility] Rx#: [id number] Oral 600 Output: Urine 300 Other: Voiding Method Toilet Toilet Urinal Urinal 07/05/23 07:35 07/05/23 07:35
[2023-07-05] MEDS: METOPROLOL SUCCINATE (ER) 50 MG TAB.ER.24H PO SCH (18:25)
[2023-07-05] MEDS ORDERED: ACETAMINOPHEN TAB 325 MG TAB PO PRN (18:27)
[2023-07-05 20:04] LABS: Appearance,Urine Clear (Clear); Bilirubin,Urine Negative (Negative); Blood,Urine Trace (Negative); Color,Urine Light Yellow; Glucose,Urine (UA) Negative (Negative); Ketones,Urine Negative (Negative); Leukocyte Esterase,Urine Negative (Negative); Nitrite,Urine Negative (Negative); Protein,Urine Negative (Negative); RBC,Urine 1 /hpf (0-5); Specific Gravity,Urine 1.044 (1.001-1.035); Urobilinogen,Urine <2.0 mg/dL (<2.0)
[2023-07-05 20:17] LABS: Glucose,Whole Blood 228 mg/dL (70-110)
[2023-07-05] MEDS: INSULIN DETEMIR (LEVEMIR) 100 UNIT/ML SYR SQ SCH (20:45)
[2023-07-05] MEDS: APIXABAN 5 MG TAB PO SCH (20:45)
[2023-07-05] MEDS ORDERED: ATORVASTATIN 40 MG TAB PO SCH (21:00)
--- NOTE | 2023-07-06 01:19 | P.HPIM ---
History of Present Illness H&P Date: 07/05/23 Chief Complaint: Chest heaviness This is a pleasant 58-year-old patient follows Dr. Garvey. Otic stable medical conditions include diabetes, hypertension, hyperlipidemia. Yesterday patient gone to a there for sometime effect some short of breath and chest heaviness. It resolved. Care came home. Symptoms came back again. When he was shoveling snow. No dizziness no lightheadedness no radiation or perspiration. He felt better for his heart racing. In the ER found to be in atrial fibrillation with rapid ventricular rate. Swished over to sinus rhythm in the ER. Around [place] patient had episode that he felt profusely perspiring. Patient put on IV heparin in the ER. Had hematuria overnight. IV heparin was discontinued. Review of systems: GEN.: Tired EYES: None HEENT: None NECK: None RESPIRATORY: None CARDIOVASCULAR: As above GASTROINTESTINAL: None GENITOURINARY: As above MUSCULOSKELETAL: None LYMPHATICS: None HEMATOLOGICAL: None PSYCHIATRY: None NEUROLOGICAL: None Social history: Does not smoke or drink alcohol. 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 EYES: Pupils equal. Conjunctiva normal. HEENT: External appearance of nose and ears normal, oral cavity grossly normal. NECK: JVD not raised; masses not palpable. HEART: First and second heart sounds are normal; no edema. LUNGS: Respiratory rate normal; clear to auscultation. ABDOMEN: Soft, nontender, liver spleen not palpable, no masses palpable. PSYCH: Alert and oriented x3; mood and affect normal. MUSCULOSKELETAL:No Clubbing/cyanosis;muscles-grossly intact NEUROLOGICAL: Cranial nerves grossly intact; no facial asymmetry, power and sensation grossly intact. LYMPHATICS: No lymph nodes palpable in the axilla and neck INVESTIGATIONS, reviewed in the clinical context: July 05: White count 9.8 hemoglobin 12.2 platelets 132 potassium 3.8 creatinine 0.78 EKG tracing personally reviewed by me-atrial fibrillation with a rate of 155. T-wave changes. Chest x-ray film personally reviewed by me-cardiomegaly CT abdomen pelvis: Unremarkable Assessment and plan: -New onset of atrial fibrillation with a rapid ventricular rate. Symptomatic. Went back into sinus rhythm in the ER. Patient had received IV heparin. Started having some hematuria. Discontinued. Underlying cardiac ischemia to be ruled out -Diabetes mellitus type II on oral hypoglycemic Resume home medications. Follow Accu-Cheks and sliding scale -Essential hypertension Cozaar. Toprol-XL -Hyperlipidemia Crestor -Morbid obesity BMI 53.2 Weight loss measures -Hematuria secondary to IV heparin. IV heparin was discontinued. Hematuria since resolved. Care was discussed with the patient and the . We will need further workup first. She started on eliquis. He remained stable probably discharged tomorrow. Past Medical History Past Medical History: Diabetes Mellitus, Hyperlipidemia, Hypertension History of Any Multi-Drug Resistant Organisms: None Reported Past Surgical History: No Surgical Hx Reported Past Anesthesia/Blood Transfusion Reactions: No Reported Reaction Past Psychological History: No Psychological Hx Reported Smoking Status: Never smoker Past Alcohol Use History: None Reported Past Drug Use History: None Reported Medications and Allergies Home Medications Medication Instructions Recorded Confirmed Type Omeprazole [PriLOSEC] 20 mg PO AC-BRKFST 02/26/15 07/04/23 History Potassium Chloride ER [K-Dur 10] 10 meq PO DAILY 02/26/15 07/04/23 History metFORMIN HCL [Glucophage] 1,000 mg PO BID 02/26/15 07/04/23 History Rosuvastatin Calcium 5 mg PO HS 10/08/18 07/04/23 History Cholecalciferol [Vitamin D3 (25 50 mcg PO DAILY 07/04/23 07/04/23 History Mcg = 1000 Iu)] Insulin Aspart [NovoLOG Flexpen] See Protocol SQ ACHS 07/04/23 07/04/23 History Insulin Glargine,Hum.rec.anlog 30 units SQ HS 07/04/23 07/04/23 History [Lantus Solostar Pen] Losartan [Cozaar] 50 mg PO DAILY 07/04/23 07/04/23 History Multivitamins, Thera [Multivitamin 1 tab PO DAILY 07/04/23 07/04/23 History (formulary)] Tirzepatide [Mounjaro] 10 mg SQ FR 07/04/23 07/04/23 History Allergies Allergy/AdvReac Type Severity Reaction Status Date / Time ramipril [From Altace] Allergy Swelling Verified 07/04/23 16:15 amlodipine [From Norvasc] AdvReac Nausea Verified 07/04/23 16:15 Physical Exam Vitals: Vital Signs Temp Pulse Pulse Resp BP BP Pulse Ox 07/05/23 08:41 98.3 F 76 16 141/90 98 07/05/23 06:09 78 16 130/79 95 07/05/23 02:00 85 07/05/23 00:05 85 16 135/81 94 L 07/04/23 21:05 97.8 F 86 16 147/87 97 07/04/23 20:00 90 86 18 145/86 95 07/04/23 18:37 160 H 18 104/84 99 07/04/23 16:13 98.4 F 50 L 22 151/103 100 Intake and Output 07/04/23 07/05/23 07/05/23 22:59 06:59 14:59 Intake Total 1080 140.834 Output Total 300 Balance 1080 -159.166 Intake: Intake, IV Titration 140.834 Amount Heparin Sod,Pork in 0.45% 140.834 NaCl 25,000 unit In 0.45 % NaCl 1 250ml.bag @ 6.3 UNITS/KG/HR 10.002 mls/hr IV .Q24H [facility] Rx#: [id number] Oral 1080 Output: Urine 300 Other: Voiding Method Toilet Toilet Toilet Urinal Urinal Urinal # Voids 1 Weight 158.757 kg Results CBC & Chem 7: 07/05/23 07:35 07/05/23 07:35 Labs: Abnormal Lab Results - Last 24 Hours (Table) 07/04/23 07/04/23 07/04/23 Range/Units 16:47 16:47 21:08 RBC 6.10 H (4.30-5.90) m/uL Hgb (13.0-17.5) gm/dL Hct (39.0-53.0) % MCV 70.7 L (80.0-100.0) fL MCH 22.1 L (25.0-35.0) pg RDW 15.8 H (11.5-15.5) % Plt Count 137 L (150-450) k/uL APTT (22.0-30.0) sec Glucose 196 H (74-99) mg/dL POC Glucose (mg/dL) 234 H (70-110) mg/dL Magnesium 1.5 L (1.6-2.3) mg/dL 07/05/23 07/05/23 07/05/23 Range/Units 00:18 06:15 07:30 RBC (4.30-5.90) m/uL Hgb (13.0-17.5) gm/dL Hct (39.0-53.0) % MCV (80.0-100.0) fL MCH (25.0-35.0) pg RDW (11.5-15.5) % Plt Count (150-450) k/uL APTT 32.1 H 43.9 H (22.0-30.0) sec Glucose (74-99) mg/dL POC Glucose (mg/dL) 188 H (70-110) mg/dL Magnesium (1.6-2.3) mg/dL 07/05/23 07/05/23 Range/Units 07:35 07:35 RBC (4.30-5.90) m/uL Hgb 12.2 L (13.0-17.5) gm/dL Hct 37.9 L (39.0-53.0) % MCV 70.2 L (80.0-100.0) fL MCH 22.5 L (25.0-35.0) pg RDW (11.5-15.5) % Plt Count (150-450) k/uL APTT (22.0-30.0) sec Glucose 181 H (74-99) mg/dL POC Glucose (mg/dL) (70-110) mg/dL Magnesium (1.6-2.3) mg/dL Thrombosis Risk Factor Assmnt - Choose All That Apply Any of the Below Risk Factors Present?: No Each Factor Represents 1 point: Age 41-60 years Thrombosis Risk Factor Assessment Total Risk Factor Score: 1 Thrombosis Risk Factor Assessment Level: Low Risk
[2023-07-06 06:04] LABS: Glucose,Whole Blood 147 mg/dL (70-110)
[2023-07-06] MEDS: INSULIN ASPART (NovoLOG) 100 UNIT/ML VIAL SQ SCH ×2 (06:14→12:08)
[2023-07-06] MEDS: PANTOPRAZOLE 40 MG TABLET PO SCH (06:36)
[2023-07-06] MEDS: metFORMIN 500 MG TAB PO SCH (08:32)
[2023-07-06] MEDS: POTASSIUM CHLORIDE ER 10 MEQ TAB.ER.PRT PO SCH (08:33)
[2023-07-06] MEDS: MULTIVITAMINS, THERA 1 EACH TAB PO SCH (08:33)
[2023-07-06] MEDS: LOSARTAN 50 MG TAB PO SCH (08:33)
[2023-07-06] MEDS: METOPROLOL SUCCINATE (ER) 50 MG TAB.ER.24H PO SCH (08:33)
[2023-07-06] MEDS: CHOLECALCIFEROL 25 MCG (1000 IU) TABLET PO SCH (08:35)
[2023-07-06] MEDS: APIXABAN 5 MG TAB PO SCH (08:35)
[2023-07-06 11:35] LABS: Glucose,Whole Blood 221 mg/dL (70-110)
--- NOTE | 2023-07-06 11:56 | CA ---
Transthoracic Echo Report Name: Martínez Cruz Age: 58 Gender: M : 1965 Exam Date: 07/06/2023 10:11 Exam Location: [place] [facility] Ht (in): 68 Wt (lb): 350 Ordering Physician: Balaji Brown MD ([id number]) Attending/Referring Phys: Women Designer Torri Collier RD Procedure CPT: Indications: afib Cardiac Hx: Technical Quality: Fair Contrast 1: Total Dose (mL): Contrast 2: Total Dose (mL): MEASUREMENTS (Male / Female) Normal Values 2D ECHO LV Diastolic Diameter PLAX 5.1 cm 4.2 - 5.9 / 3.9 - 5.3 cm LV Systolic Diameter PLAX 4.2 cm IVS Diastolic Thickness 1.5 cm 0.6 - 1.0 / 0.6 - 0.9 cm LVPW Diastolic Thickness 1.4 cm 0.6 - 1.0 / 0.6 - 0.9 cm LV Relative Wall Thickness 0.6 RV Internal Dim ED PLAX 3.0 cm LVOT Diameter 2.3 cm Aortic Root Diameter 3.0 cm LA Systolic Diameter LX 3.2 cm 3.0 - 4.0 / 2.7 - 3.8 cm LV Diastolic Volume MOD BP 121.8 cm??? 67 - 155 / 56 - 104 cm??? LV Systolic Volume MOD BP 59.0 cm??? - 58 / 19 - 49 cm??? LV Ejection Fraction MOD BP 51.5 % >= 55 % LV Cardiac Index MOD BP 1540.0 cm???/min???m??? LV Diastolic Volume MOD 4C 91.4 cm??? LV Systolic Volume MOD 4C 40.8 cm??? LV Ejection Fraction MOD 4C 55.4 % LV Cardiac Index MOD 4C 1241.5 cm???/min???m??? LV Diastolic Length 4C 7.3 cm LV Systolic Length 4C 6.0 cm LV Diastolic Volume MOD 2C 147.4 cm??? LV Systolic Volume MOD 2C 77.4 cm??? LV Ejection Fraction MOD 2C 47.5 % LV Cardiac Index MOD 2C 1716.5 cm???/min???m??? LV Diastolic Length 2C 8.0 cm LV Systolic Length 2C 6.7 cm LA Volume 80.1 cm??? 18 - 58 / 22 - 52 cm??? LA Volume Index 28.1 cm???/m??? 16 - 28 cm???/m??? Ascending Aorta Diameter 3.0 cm DOPPLER AV Peak Velocity 115.1 cm/s AV Peak Gradient 5.3 mmHg AV Mean Velocity 81.6 cm/s AV Mean Gradient 3.1 mmHg AV Velocity Time Integral 28.0 cm LVOT Peak Velocity 108.1 cm/s LVOT Peak Gradient 4.7 mmHg LVOT Velocity Time Integral 23.4 cm LVOT Stroke Volume 94.6 cm??? LVOT Stroke Volume Index 36.5 ml/m??? LVOT Cardiac Index 2319.7 cm???/min???m??? AV Area Cont Eq vti 3.4 cm??? AV Area Cont Eq pk 3.8 cm??? MV Peak Velocity 103.1 cm/s MV Peak Gradient 4.3 mmHg MV Mean Velocity 52.6 cm/s MV Mean Gradient 1.3 mmHg MV Velocity Time Integral 42.4 cm MR Peak Velocity 303.0 cm/s MR Peak Gradient 36.7 mmHg Mitral E Point Velocity 56.4 cm/s Mitral A Point Velocity 77.5 cm/s Mitral E to A Ratio 0.7 MV Deceleration Time 363.0 ms MV E' Velocity 5.3 cm/s Mitral E to MV E' Ratio 10.7 TR Peak Velocity 207.9 cm/s TR Peak Gradient 17.3 mmHg Right Ventricular Systolic Press 23.7 mmHg PV Peak Velocity 74.0 cm/s PV Peak Gradient 2.2 mmHg FINDINGS Left Ventricle Normal LV size. Mild to moderate concentric LVH. Left ventricular ejection fraction is estimated at 50-55 %. Right Ventricle Normal right ventricular size. Right Atrium Normal right atrial size. Left Atrium Severely increased left atrial volume. Mildly increased left atrial area. LA volume index= 31ml/m2 Mitral Valve Structurally normal mitral valve. Mild to moderate MR. Aortic Valve Trileaflet aortic valve. No aortic stenosis. No aortic regurgitation. Tricuspid Valve Structurally normal tricuspid valve. Trace TR. Pulmonic Valve Pulmonic valve not well visualized. Trace PI. Pericardium Normal pericardium. Aorta Normal size aortic root. CONCLUSIONS Left ventricular ejection fraction is estimated at 50-55 %. Normal LV size. Mild to moderate concentric LVH. Mild left atrial dilatation dilatation [id number] MR No significant pericardial effusion Previewed by: Dr Balaji Brown (Electronically Signed) Final Date: 06 July 2023 11:54
[2023-07-06 12:40] VITALS: BP 155/88; PULSE 68; TEMP 98.2
--- NOTE | 2023-07-06 13:10 | P.PN ---
Subjective Progress Note Date: 07/06/23 Progress note Patient is doing well from cardiac vessel standpoint. He has not gone into atrial fibrillation in last 24 hours since he has been placed on metoprolol. He has not had any chest pain shortness of breath. His echocardiogram showed an EF of 50%, [id number] LVH, moderate mitral regurgitation and mild to moderate left atrial dilatation. HISTORY OF PRESENTING ILLNESS Patient is a 58-year-old -Greek male with morbid obesity, essential hypertension, type 2 diabetes presented to the hospital because of worsening chest heaviness and shortness of breath that started somewhat suddenly yesterday. On admission he was noticed to be in atrial fibrillation with rapid ventricular response. This is a new diagnosis for him. Patient has never been on it for ablation previously. Admission ECG showed atrial fibrillation with rapid ventricular response, heart rate 155 beats a minute. There were nonspecific ST changes in inferior leads with mild ST depressions at fast heartbeat Patient converted spontaneously to sinus rhythm at 8 PM yesterday. Repeat ECG shows sinus rhythm no significant ST-T wave changes at resting. Hemoglobin 12.2, platelets 162, sodium 138, percussion 3.8, creatinine 0.7, his UNC 9.5, troponin was negative at 0.02. Patient was started on IV heparin drip yesterday. This morning he was noticed to have hematuria. He was evaluated by urology service. They feel that his hematuria might be prostatic in origin. They performed a CT pelvis with contrast which did not show any concerning findings that may explain hematuria BP 140/70, heart rate 70 beats a minute, currently in sinus rhythm Hemoglobin 12.2, platelets 162, creatinine 0.7, troponins negative, HbA1c 9.5 REVIEW OF SYSTEMS 14 point review of system is negative except what is mentioned above in HPI. PHYSICAL EXAMINATION Vital signs reviewed. Head: Normocephalic. Eyes: Sclerae nonicteric. Neck: Brisk carotid upstroke, no jugular venous distention. Lungs: Clear to auscultation. Heart: Regular rate and rhythm, S1-S2, no S3, no murmur or rub. Abdomen: Soft nontender, positive bowel sounds no organomegaly. Extremities: No edema, intact distal pulses. Neuro: Alert, oritented, no focal deficits ASSESSMENT New-onset atrial fibrillation. Currently in sinus rhythm. [id number] score 2 hypertension and diabetes Type II Diabetes, a1c 9.5 Essential hypertension Morbid obesity Gross hematuria, currently stable. His echocardiogram showed an EF of 50%, [id number] LVH, moderate mitral regurgitation and mild to moderate left atrial dilatation. PLAN No hematuria. Continue anticoagulation. Discontinue IV heparin drip, start Eliquis 5 mg twice a day Start metoprolol succinate 50 mg daily Continue losartan 50 mg daily Start HCTZ 25 mg for better blood pressure control. Case discussed with urology service. They agree with resuming anticoagulation and see how patient responds to it. Outpatient follow-up with Dr. Brown in next 1-2 weeks. He will need an outpatient ischemic evaluation. If no ischemia he will be a candidate for pill in the pocket strategy Okay to be discharged Objective - Vital Signs Vital signs: Vital Signs Temp 98.2 F 07/06/23 12:00 Pulse 68 07/06/23 12:00 Resp 16 07/06/23 12:00 BP 155/88 07/06/23 12:00 Pulse Ox 97 07/06/23 12:00 FiO2 Intake & Output 07/05/23 07/06/23 07/06/23 18:59 06:59 18:59 Intake Total 960 780 120 Balance 960 780 120 Intake: Oral 960 780 120 Other: Voiding Method Toilet Toilet Toilet Urinal Urinal Urinal # Voids 2 1 - Labs CBC & Chem 7: 07/05/23 07:35 07/05/23 07:35 Labs: Abnormal Lab Results - Last 24 Hours (Table) 07/05/23 07/05/23 07/05/23 Range/Units 07:30 17:01 19:45 POC Glucose (mg/dL) 194 H (70-110) mg/dL Hemoglobin A1c 9.5 H (<=6.0) % Ur Specific [place] 1.044 H (1.001-1.035) Urine Blood Trace H (Negative) 07/05/23 07/06/23 07/06/23 Range/Units 20:16 06:02 11:33 POC Glucose (mg/dL) 228 H 147 H 221 H (70-110) mg/dL Hemoglobin A1c (<=6.0) % Ur Specific [place] (1.001-1.035) Urine Blood (Negative)
[2023-07-06] MEDS ORDERED: hydroCHLOROthiazide 25 MG TAB PO SCH (13:15)
--- NOTE | 2023-07-07 17:47 | P.DS ---
Providers Date of admission: 07/04/23 18:26 Expected date of discharge: 07/06/23 Attending physician: Danilo Conway Consults: 07/04/23 18:26 Consult Physician Urgent Consulting Provider: [facility] Consult Reason/Comments: new onset afib Do you want consulting provider notified?: Yes 07/05/23 06:47 Consult Physician Routine Consulting Provider: Vince Jalloh Consult Reason/Comments: hematuria Do you want consulting provider notified?: Yes Primary care physician: [facility] [place]: Chief Complaint: Chest heaviness This is a pleasant 58-year-old patient follows Dr. Garvey. Otic stable medical conditions include diabetes, hypertension, hyperlipidemia. Yesterday patient gone to a there for sometime effect some short of breath and chest heaviness. It resolved. Care came home. Symptoms came back again. When he was shoveling snow. No dizziness no lightheadedness no radiation or perspiration. He felt better for his heart racing. In the ER found to be in atrial fibrillation with rapid ventricular rate. Swished over to sinus rhythm in the ER. Around [place] patient had episode that he felt profusely perspiring. Patient put on IV heparin in the ER. Had hematuria overnight. IV heparin was discontinued. 07/06/2023: Patient has been getting eliquis. No further hematuria. Seen by karina velazquez. He'll follow outpatient. Her blood pressure patient put on Toprol-XL and chlorthalidone. Follow up with Dr. Tillman outpatient. Questions answered. Discussed patient and family the bedside. Discussion and discharge planning more than 35 minutes Social history: Does not smoke or drink alcohol. 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 Conjunctiva normal. HEENT: External appearance of nose and ears normal, oral cavity grossly normal. NECK: JVD not raised; masses not palpable. HEART: First and second heart sounds are normal; no edema. LUNGS: Respiratory rate normal; clear to auscultation. ABDOMEN: Soft, nontender, liver spleen not palpable, no masses palpable. PSYCH: Alert and oriented x3; mood and affect normal. MUSCULOSKELETAL:No Clubbing/cyanosis;muscles-grossly intact INVESTIGATIONS, reviewed in the clinical context: 2-D echocardiogram: EF 50-55%. LVH. Moderate MR. July 05: White count 9.8 hemoglobin 12.2 platelets 132 potassium 3.8 creatinine 0.78 EKG tracing personally reviewed by me-atrial fibrillation with a rate of 155. T-wave changes. Chest x-ray film personally reviewed by me-cardiomegaly CT abdomen pelvis: Unremarkable Assessment and plan: -New onset of paroxysmal atrial fibrillation with a rapid ventricular rate. Symptomatic. Went back into sinus rhythm in the ER. received IV heparin. Changed over to eliquis. Lopressor -Productive 100 cardiac ischemia. Follow-up with Dr. Layne Cox outpatient -Diabetes mellitus type II on oral hypoglycemic Resume home medications. Follow Accu-Cheks and sliding scale -Essential hypertension Cozaar 50 mg. Toprol-XL 50 mg day. Chlorthalidone 25 mg a day. -Hyperlipidemia Crestor -Morbid obesity BMI 53.2 Weight loss measures -Hematuria secondary to IV heparin. IV heparin was discontinued. By urology. Will follow up outpatient. Disposition: Home Past Medical History Past Medical History: Diabetes Mellitus, Hyperlipidemia, Hypertension History of Any Multi-Drug Resistant Organisms: None Reported Past Surgical History: No Surgical Hx Reported Past Anesthesia/Blood Transfusion Reactions: No Reported Reaction Past Psychological History: No Psychological Hx Reported Smoking Status: Never smoker Past Alcohol Use History: None Reported Past Drug Use History: None Reported Plan - Discharge Summary Discharge Rx Participant: No New Discharge Prescriptions: New Apixaban [Eliquis] 5 mg PO BID #60 tab Metoprolol Succinate (ER) [Toprol XL] 50 mg PO DAILY #30 tab Chlorthalidone [Hygroton] 25 mg PO DAILY #30 tablet Continue metFORMIN HCL [Glucophage] 1,000 mg PO BID Potassium Chloride ER [K-Dur 10] 10 meq PO DAILY Omeprazole [PriLOSEC] 20 mg PO AC-BRKFST Rosuvastatin Calcium 5 mg PO HS Insulin Aspart [NovoLOG Flexpen] See Protocol SQ ACHS Cholecalciferol [Vitamin D3 (25 Mcg = 1000 Iu)] 50 mcg PO DAILY Tirzepatide [Mounjaro] 10 mg SQ FR Losartan [Cozaar] 50 mg PO DAILY Multivitamins, Thera [Multivitamin (formulary)] 1 tab PO DAILY Insulin Glargine,Hum.rec.anlog [Lantus Solostar Pen] 30 units SQ HS Discharge Medication List Omeprazole [PriLOSEC] 20 mg PO AC-BRKFST 02/26/15 [History] Potassium Chloride ER [K-Dur 10] 10 meq PO DAILY 02/26/15 [History] metFORMIN HCL [Glucophage] 1,000 mg PO BID 02/26/15 [History] Rosuvastatin Calcium 5 mg PO HS 10/08/18 [History] Cholecalciferol [Vitamin D3 (25 Mcg = 1000 Iu)] 50 mcg PO DAILY 07/04/23 [History] Insulin Aspart [NovoLOG Flexpen] See Protocol SQ ACHS 07/04/23 [History] Insulin Glargine,Hum.rec.anlog [Lantus Solostar Pen] 30 units SQ HS 07/04/23 [History] Losartan [Cozaar] 50 mg PO DAILY 07/04/23 [History] Multivitamins, Thera [Multivitamin (formulary)] 1 tab PO DAILY 07/04/23 [History] Tirzepatide [Mounjaro] 10 mg SQ FR 07/04/23 [History] Apixaban [Eliquis] 5 mg PO BID #60 tab 07/06/23 [Rx] Chlorthalidone [Hygroton] 25 mg PO DAILY #30 tablet 07/06/23 [Rx] Metoprolol Succinate (ER) [Toprol XL] 50 mg PO DAILY #30 tab 07/06/23 [Rx] Follow up Appointment(s)/Referral(s): Balaji Brown MD [Medical Doctor] - 1 Week Reuben Garvey DO [Primary Care Provider] - 1-2 days Vince Jalloh MD [STAFF PHYSICIAN] - 2 Weeks Patient Instructions/Handouts: A-fib (Atrial Fibrillation) (DC) Activity/Diet/Wound Care/Special Instructions: Instruct patient to call Dr. Jalloh' office ([phone]) to schedule office cystoscopy in 2-3 weeks. Discharge Disposition: HOME SELF-CARE
[2023-07-11] MEDS ORDERED: Tirzepatide [Mounjaro] 10 MG/0.5 ML Pen.Injctr SQ SCH (09:00)
--- NOTE | 2023-07-17 10:52 | CDI ---
Documentation Clarification Form Date: 07/17/2023 10:43:08 AM From: Tanna Crocker Phone: Admit Date: 07/04/2023 06:26:00 PM Patient Name: Martínez Cruz Visit Number: [id number] Discharge Date: 07/06/2023 02:42:00 PM ATTENTION: The Clinical Documentation Specialists (CDI) and [facility] Coding Staff appreciate your assistance in clarifying documentation. Please respond to the clarification below the line at the bottom and electronically sign. The CDI & [facility] Coding staff will review the response and follow-up if needed. Please note: Queries are made part of the Legal Health Record. If you have any questions, please contact the author of this message via ITS. Dr. Danilo Conway Diabetes is documented H&P Note. Additional specificity regarding the diabetes diagnosis is requested. History/Risk Factors: 58yo M, PAF, HTN, morbid obesity, HLD, MR/AD Clinical Indicators: Glucose: 07/05 181- 234 07/06 194-228 A1C: 9.5 Treatment: Home medications Metformin 1000mg ; Novolog SQ ACHD; Lantus Solostar 30u SQ HS; Tirzepatide 10mg SQ FR Insulin while inpatient Please clarify the type of diabetes, if known: [ ] Diabetes Type 2 with hyperglycemia [ + ] Other, please specify____diabetes mellitus type 2 on oral hypoglycemic, uncontrolled with hyperglycemia [ ] Unable to Determine (Template Last Revised: August 2020) MTDD
== END 2023-07-06 14:42 | disposition home or self-care (01) | DRG 309 ==
LOC: EC 16:11 → 3SCARD 18:26
PROVIDERS: ADMIT Hospitalist; ATTEND Hospitalist
DX: I48.0 Paroxysmal atrial fibrillation (principal); Z68.43 Body mass index [BMI] 50.0-59.9, adult; I11.9 Hypertensive heart disease without heart failure; E11.65 Type 2 diabetes mellitus with hyperglycemia; E66.01 Morbid (severe) obesity due to excess calories; E78.5 Hyperlipidemia, unspecified; I08.0 Rheumatic disorders of both mitral and aortic valves; R31.0 Gross hematuria; R35.0 Frequency of micturition; Z79.4 Long term (current) use of insulin; Z79.84 Long term (current) use of oral hypoglycemic drugs; Z79.899 Other long term (current) drug therapy; Z79.01 Long term (current) use of anticoagulants; Z79.85 Long-term (current) use of injectable non-insulin antidiabetic drugs; Z88.8 Allergy status to other drugs, medicaments and biological substances; Z87.442 Personal history of urinary calculi
CPT/HCPCS: 36415; 71046; 74178; 80048; 80053; 81001; 83036; 83735; 83880; 84443; 84484; 85025; 85610; 85730; 93005; 93306; 96365; 96366; 96375; 99291

== ENCOUNTER → 2023-09-17 | Outpatient (CLI) | payer BC ==
[2023-09-17 14:32] VITALS: BP 147/85; PULSE 72; RESP 16; TEMP 97.4
--- NOTE | 2023-09-17 15:08 | P.SLEEP ---
History of Present Illness DATE: 09/17/2023 CONSULTATION/NEW PATIENT EVALUATION HISTORY OF PRESENT ILLNESS/SLEEP-WAKE EVALUATION: 58-year-old gentleman had be en evaluated in the sleep center for possible obstructive sleep apnea hypopnea syndrome. SLEEP SCHEDULE: Usually sleep schedule usual sleep schedule from 11 PM to 6 AM. FALLING ASLEEP: Sometimes patient has difficulties to initiate sleep. DURING SLEEP: Patient snores and wakes up from sleep 4 times with nocturia. No history of hypnogogical hallucinations, sleep paralysis, or cataplexy. DURING THE DAY/WAKE STATE: During the day patient may feel sleepiness. [place] sleepiness scale is 9. PAST MEDICAL HISTORY: Diabetes mellitus, atrial fibrillation, hyperlipidemia, acid reflux. PAST SURGICAL HISTORY: None. MEDICATIONS: Metformin, chlorthalidone, rosuvastatin, Eliquis, Lantus, NovoLog, metoprolol, Mounjaro, omeprazole, Jardiance. SOCIAL HISTORY: Negative for smoking or using alcohol. FAMILY HISTORY: Sleep apnea, hypertension, diabetes. REVIEW OF SYSTEMS: Snoring multiple awakenings from sleep. No fevers. No double vision. No recent chest pain. No shortness of breath. No abdominal pain. No bleeding episodes. No blood in urine. No seizure episodes. PHYSICAL EXAMINATION: GENERAL: A pleasant patient without any distress. VITAL SIGNS: BP 147/85, pulse 72, respiratory rate 16, weight 332 pounds, height 5 foot and 6 inches, temperature 97.4, oxygen saturation room air 94%, body mass index 53.5. HEENT: PERRLA, EOMI. Evaluation of oropharynx showed tongue protrudes midline, low position of soft palate Mallampati 4. NECK: Supple. No JVD. Thyroid is not palpable. 14-3/4 inches in circumference. LUNGS: Clear to percussion and to auscultation. Good air exchange. No wheezing or rhonchi. HEART: S1, S2 regular. No murmurs, gallops or rubs. ABDOMEN: Soft and nontender. Bowel sounds are present. No organomegaly appreciated. Obese EXTREMITIES: No clubbing or cyanosis. [place]: Awake, alert, and oriented x3. Cranial nerves 2 to 7 intact. There is no fasciculation or atrophy noted. No focal deficits observed. ASSESSMENT: 1. Snoring, multiple awakenings from sleep, extremely low position of soft palate Mallampati 4. Obstructive sleep apnea hypopnea syndrome. 2. Obesity, BMI 53.5. 3. History of atrial fibrillation. 4. Diabetes mellitus. 5 hyperlipidemia. 6 . Acid reflux. PLAN: 1. Polysomnography for evaluation of patient's breathing during sleep. 2. Following plan after reading sleep study. 3. Preferable position during sleep on the side. 4. No driving if patient feels any sleepiness. Patient is aware of civil and criminal liability for unsafe driving. 5. Sleep hygiene with regular sleep time for at least 7.5-8 hours. 6. Watching and losing weight. Thank you very much for referring this patient for consultation. Sincerely, Shane Lackey MD, PhD, FAASM. Diplomat of [place] [employer], Sleep Medicine Board by [place] [employer] [employer] Human Resources Benefits Coordinator of [facility] [place] Past Medical History Past Medical History: Diabetes Mellitus, Hyperlipidemia, Hypertension History of Any Multi-Drug Resistant Organisms: None Reported Past Surgical History: No Surgical Hx Reported Past Anesthesia/Blood Transfusion Reactions: No Reported Reaction Past Psychological History: No Psychological Hx Reported Smoking Status: Never smoker Past Alcohol Use History: None Reported Past Drug Use History: None Reported - Past Family History Father History Unknown: Yes Family Medical History: Diabetes Mellitus, Hypertension, Sleep Apnea/CPAP/BIPAP Mother Family Medical History: AICD/Pacemaker, Congestive Heart Failure (CHF), Coronary Artery Disease (CAD) Medications and Allergies Home Medications Medication Instructions Recorded Confirmed Type Omeprazole [PriLOSEC] 20 mg PO AC-BRKFST 02/26/15 07/04/23 History Potassium Chloride ER [K-Dur 10] 10 meq PO DAILY 02/26/15 07/04/23 History metFORMIN HCL [Glucophage] 1,000 mg PO BID 02/26/15 07/04/23 History Rosuvastatin Calcium 5 mg PO HS 10/08/18 07/04/23 History Cholecalciferol [Vitamin D3 (25 50 mcg PO DAILY 07/04/23 07/04/23 History Mcg = 1000 Iu)] Insulin Aspart [NovoLOG Flexpen] See Protocol SQ ACHS 07/04/23 07/04/23 History Insulin Glargine,Hum.rec.anlog 30 units SQ HS 07/04/23 07/04/23 History [Lantus Solostar Pen] Losartan [Cozaar] 50 mg PO DAILY 07/04/23 07/04/23 History Multivitamins, Thera [Multivitamin 1 tab PO DAILY 07/04/23 07/04/23 History (formulary)] Tirzepatide [Mounjaro] 10 mg SQ FR 07/04/23 07/04/23 History Apixaban [Eliquis] 5 mg PO BID #60 tab 07/06/23 Rx Chlorthalidone [Hygroton] 25 mg PO DAILY #30 tablet 07/06/23 Rx Metoprolol Succinate (ER) [Toprol 50 mg PO DAILY #30 tab 07/06/23 Rx XL] Allergies Allergy/AdvReac Type Severity Reaction Status Date / Time ramipril [From Altace] Allergy Swelling Verified 07/04/23 16:15 amlodipine [From Norvasc] AdvReac Nausea Verified 07/04/23 16:15 Physical Exam Vitals: Vital Signs Temp Pulse Resp BP Pulse Ox 09/17/23 14:31 97.4 F L 72 16 147/85 94 L Intake and Output 09/16/23 09/17/23 09/17/23 22:59 06:59 14:59 Other: Weight 150.593 kg Sleep Note - Sleep Note Sleep Note: Temperature: 97.4 F Pulse Rate: 72 Respiratory Rate: 16 Blood Pressure: 147/85 SpO2: 94 Height: 5 ft 6 in Weight: 150.593 kg BMI: Neck Circumference:
== END ==
LOC: 3 N SLEEP 13:43
PROVIDERS: ATTEND Internal Medicine
DX: G47.33 Obstructive sleep apnea (adult) (pediatric) (principal); E66.9 Obesity, unspecified; E11.9 Type 2 diabetes mellitus without complications; E78.5 Hyperlipidemia, unspecified; K21.9 Gastro-esophageal reflux disease without esophagitis; Z68.43 Body mass index [BMI] 50.0-59.9, adult; Z86.79 Personal history of other diseases of the circulatory system; Z79.84 Long term (current) use of oral hypoglycemic drugs; Z79.01 Long term (current) use of anticoagulants; Z79.85 Long-term (current) use of injectable non-insulin antidiabetic drugs; Z79.4 Long term (current) use of insulin; Z88.8 Allergy status to other drugs, medicaments and biological substances
CPT/HCPCS: 99211

== ENCOUNTER → 2024-07-16 | Outpatient (CLI) | payer BC ==
--- NOTE | 2024-07-16 16:43 | US ---
EXAMINATION TYPE: US thyroid st tissue head/neck DATE OF EXAM: 07/16/2024 COMPARISON: NONE CLINICAL INDICATION: Male, 59 years old with history of R59.0 ENLARGED LYMPH NODES; Lump left neck, p atient thinks it got smaller. TECHNIQUE: Scanned left neck at patient's area of concern. FINDINGS: Hypoechoic area with hyperechoic center seen left submandibular area: 0.7 x 0.6 x 0.6 cm. Is may be a small lymph node. IMPRESSION: 1. Small hypodense area near the left submandibular region may be a small lymph node [facility], , 07/16/2024 4:40 PM
== END | disposition home or self-care (01) ==
LOC: RADUSWWP 14:56
PROVIDERS: ATTEND Family Medicine
DX: R59.0 Localized enlarged lymph nodes (principal)
CPT/HCPCS: 76536